=== PATIENT | female | born 1975 | race Caucasian/White ===

== ENCOUNTER 2020-05-24 16:19 | Inpatient (IN) | payer SELFPAY ==
[~2020-05-24] VITALS: Ht 167.6 cm; Wt 98.2 kg
[2020-05-24] MEDS ORDERED: LISINOPRIL10 MG PO (16:45)
[2020-05-24] MEDS ORDERED: KLONOPIN0.5 MG PO (16:45)
[2020-05-24 17:21] LABS: BASOPHILS 0.4 % (0-2); EOSINOPHILS 1.7 % (0-7); HEMATOCRIT 30.8 % (36.0-48.0); HEMOGLOBIN 9.3 g/dL (12-16); IMMATURE GRANULOCYTES 0.1 % (0-5); LYMPHOCYTE ABS# 1.71 10x3/uL (1.18-3.74); LYMPHOCYTES 21.3 % (15-50); MCH 19.2 pg (26.0-34.0); MCHC 30.2 g/dL (31.0-37.0); MCV 63.6 fL (80.0-100.0); MEAN PLATELET VOLUME 9.2 fL (7.4-10.4); MONOCYTES 10.6 % (2-11); NEUTROPHIL ABS# 5.28 10x3/uL (1.56-6.13); NEUTROPHILS 65.9 % (40-80); PLATELET COUNT 272 10x3/uL (130-400); RBC 4.84 10x6/uL (4.00-5.40); RDW 18.2 % (11.5-14.5)
[2020-05-24 17:30] LABS: CALCIUM 8.4 mg/dL (8.5-10.1); CARBON DIOXIDE 23.4 mmol/L (21.0-32.0); CREATININE - SERUM 0.9 mg/dL (0.6-1.3); POTASSIUM - SERUM 3.4 mmol/L (3.5-5.1)
[2020-05-24 17:31] LABS: APTT 28.5 SECONDS (22.8-39.4); INR 1.14 (0.85-1.17); PROTIME 13.5 SECONDS (11.6-15.0)
[2020-05-24 17:36] LABS: ALBUMIN 3.6 g/dL (3.4-5.0); BILIRUBIN - TOTAL 0.14 mg/dL (0.2-1.3); PROTEIN - SERUM 7.5 g/dL (6.4-8.2)
[2020-05-24 17:45] VITALS: BP 194/78
[2020-05-24 18:20] VITALS: BP 185/93
[2020-05-24 18:20] LABS: HCG SERUM NEGATIVE (NEGATIVE)
[2020-05-24 22:42] VITALS: BP 158/92
[2020-05-24 22:55] VITALS: BP 167/82
[2020-05-24 23:10] VITALS: BP 161/87
[2020-05-24 23:53] VITALS: Ht 167.6 cm; Wt 98.2 kg
[2020-05-25] VITALS (10 sets, daily range): BP systolic 136–181; BP diastolic 65–95
[2020-05-25] MEDS ORDERED: OXYIR5 MG PO (07:28)
[2020-05-25] MEDS ORDERED: VISTARIL50 MG PO (07:29)
[2020-05-25] MEDS ORDERED: BAYER CHEWABLE81 MG PO (07:29)
--- NOTE | 2020-05-25 07:32 | NUR ---
PT SEEN AND ASSESSED. RIGHT ANKLE WRAPPED AND ELEVATED ON PILLOW X 2. STATES PAIN IS 6/10-MED GIVEN. SCD TO LEFT LEG NOTED. INCENTIVE SPIROMETRY COMPLETED AND PULLED 2750CC. HOPING FOR DISHCARGE LATER TODAY. CALL LIGHT IN REACH
[2020-05-25 08:14] LABS: ALBUMIN 3.1 g/dL (3.4-5.0); ALKALINE PHOSPHATASE 81 U/L (30-120); ALT (SGPT) 25 U/L (10-68); BILIRUBIN - TOTAL 0.29 mg/dL (0.2-1.3); CALC OSMOLALITY 271 mosm/kg (275-300); CALCIUM 7.8 mg/dL (8.5-10.1); CARBON DIOXIDE 26.2 mmol/L (21.0-32.0); CHLORIDE - SERUM 102 mmol/L (98-107); CREATININE - SERUM 0.7 mg/dL (0.6-1.3); GLUCOSE 110 mg/dL (74-106); MAGNESIUM - SERUM 1.8 mg/dL (1.8-2.4); PHOSPHOROUS 2.8 mg/dL (2.5-4.9); POTASSIUM - SERUM 3.6 mmol/L (3.5-5.1); PROTEIN - SERUM 6.4 g/dL (6.4-8.2); SODIUM 136 mmol/L (136-145); UREA NITROGEN 11 mg/dL (7-18); eGFR NON AFRICAN AMERICAN > 90 mL/min (90-120)
[2020-05-25 08:29] LABS: BASOPHILS 0.2 % (0-2); EOSINOPHILS 0.2 % (0-7); HEMATOCRIT 27.8 % (36.0-48.0); HEMOGLOBIN 8.2 g/dL (12-16); IMMATURE GRANULOCYTES 0.1 % (0-5); LYMPHOCYTE ABS# 0.83 10x3/uL (1.18-3.74); LYMPHOCYTES 7.5 % (15-50); MCHC 29.5 g/dL (31.0-37.0); MCV 64.2 fL (80.0-100.0); MONOCYTES 11.4 % (2-11); NEUTROPHIL ABS# 8.99 10x3/uL (1.56-6.13); NEUTROPHILS 80.6 % (40-80); PLATELET COUNT 224 10x3/uL (130-400); RBC 4.33 10x6/uL (4.00-5.40); RDW 18.3 % (11.5-14.5)
[2020-05-25 08:32] LABS: MCH 18.9 pg (26.0-34.0); WBC 11.1 10x3/uL (4.8-10.8)
--- NOTE | 2020-05-25 09:44 | NUR ---
called to room. pt vomiting approx 300cc green bile. zofran given
--- NOTE | 2020-05-25 10:10 | NUR ---
pt states nausea is gone.
--- NOTE | 2020-05-25 12:23 | OP ---
PATIENT NAME: JAQUELINE HARRIS MEDICAL RECORD: [id number] :75 LOCATION:D.M3 D.1210 ADMISSION DATE:05/24/20 SURGEON: ARASH PUGA DO DATE OF OPERATION: 05/24/2020 PROCEDURE PERFORMED: Right ankle open reduction internal fixation. PREOPERATIVE DIAGNOSIS: Right ankle fracture dislocation. POSTOPERATIVE DIAGNOSIS: Right ankle fracture dislocation. INDICATIONS: Ms. Harris is a 44-year-old female who slipped getting out of her car today and twisted her ankle, came to the ER and saw. She had an ankle fracture dislocation posterolaterally. I attempted reduction in the ER with no success. She had eaten a 3:00 p.m. approximately and told her we really need to fix it tonight and it was bad to leave it dislocated. She was okay with that and aware of the risks including infection, bleeding, damage to nerve and vessels, need for further surgery, malunion, nonunion, continued pain, need for further surgery, failure of implants, blood clots and even and she signed the consent. SURGEON: Arash Puga DO DESCRIPTION OF PROCEDURE: The patient was taken to the operative suite, laid in supine position, given general anesthetic and intubated rapid sequence due to her n.p.o. status, it had only approximately 6 hours' by the time we started. The patient was given 3 grams of Ancef preoperatively. The right lower extremity was then prepped and draped in sterile fashion. Timeout was performed. Everyone was in agreeance with the correct side, site, patient and procedure. I then began by exsanguinating the right lower extremity. Tourniquet was inflated to 350 mmHg it was up for 66 minutes. I then began by making an incision over the lateral malleolus at the distal ankle and reduced it and put a plate on. Once the plate was in adequate position on AP and lateral, pinned it into place and then put distal locking screws in and two cortical screws in the shaft and two locking screws in the shaft. I then addressed the medial side, make a curvilinear incision over the medial malleolus, reduced fracture and put two K-wires in. We put one screw in posteriorly and reduced the fracture nicely the anterior one. I then exchanged due to the screw slipping out medially. I then redirected the K-wire and put another both #46 mm in length screws in the medial malleolus, reducing the fracture nicely. I then stressed the syndesmosis and it did not appear to open up much, but due to the fracture dislocation for more stability, I clamped the ankle joint together with the ankle dorsiflexed and then put a ZipTight across the syndesmosis holding the fibula and tibia together, tightened and cinched it down tight. I then released the clamp. X-rays were taken in AP, mortise and lateral. Everything was in adequate position and then irrigated the sites. Param Vela, certified surgical lab assistant closed the lateral side with 2-0 Vicryl in inverted fashion and placed a ZipLine on the incision. I then closed the medial side with 2-0 Vicryl in interrupted fashion, 4-0 Monocryl run on the skin and then where the K-wires went through and poked holes I did a 4-0 Monocryl in an inverted interrupted fashion in one hole and then the other one more posterior one was closed with a horizontal mattress. The tourniquet was then let down. She was then cleaned up and dressed with Adaptic, 4 x 4s, ABD on the heel, cast padding and 4 x 30 splint placed posteriorly and secured with an Donnie wrap. She was awakened and taken to recovery in stable condition. I did do local in the medial side. OPERATIVE REPORT [id number] JAQUELINE HARRIS BLOOD LOSS: Minimal. COMPLICATIONS: None. TRANSINT:[id number] Voice Confirmation ID: [id number] DOCUMENT ID: [id number] ARASH PUGA DO at 1223 CC: [id number] DICTATION DATE: 05/24/202210 STATISTICS PROFESSOR: 05/25/20 020 ADM IN [facility] [address] [place] [address]
--- NOTE | 2020-05-25 19:12 | NUR ---
PATIENT RESTING IN BED WITH NO S/S OF DISTRESS. VSS. PATIENT DENIES NEEDS AT THIS TIME. BED IN LOWEST POSITION, CALL LIGHT WITHIN REACH, AND BED ALARM ON. ENCOURAGED PATIENT TO CALL WITH NEEDS.
--- NOTE | 2020-05-25 20:02 | NUR ---
ADMINISTERED MEDS PER ORDERS. PATIENT SHAWN WELL. ENCOURAGED TO CALL WITH NEEDS.
[2020-05-26 05:19] VITALS: BP 133/69
[2020-05-26] MEDS ORDERED: ZOFRAN ODT4 MG/UDTAB PO (07:01)
[2020-05-26 07:36] VITALS: BP 133/60
--- NOTE | 2020-05-26 07:47 | NUR ---
AWAKE AND ALERT. ORIENTED X3. LUNGS ARE CLEAR BILATERALLY, NO COUGH NOTED. SKIN IS INTACT WITHOUT REDNESS EXCEPT TO RIGHT ANKLE WHICH HAS A DRY INTACT CAST/DRESSING IN PLACE. SL TO LEFT AC AREA IS PATENT WITHOUT REDNESS AT INSERTION SITE. DENIES NEEDS. NEURO CHECKS WNL TO RIGHT FOOT.
[2020-05-26 08:02] LABS: CALC OSMOLALITY 272 mosm/kg (275-300); CALCIUM 7.9 mg/dL (8.5-10.1); CARBON DIOXIDE 27.4 mmol/L (21.0-32.0); CHLORIDE - SERUM 103 mmol/L (98-107); CREATININE - SERUM 0.5 mg/dL (0.6-1.3); GLUCOSE 97 mg/dL (74-106); MAGNESIUM - SERUM 2.2 mg/dL (1.8-2.4); PHOSPHOROUS 2.7 mg/dL (2.5-4.9); POTASSIUM - SERUM 3.4 mmol/L (3.5-5.1); SODIUM 137 mmol/L (136-145); UREA NITROGEN 11 mg/dL (7-18); eGFR NON AFRICAN AMERICAN > 90 mL/min (90-120)
[2020-05-26 08:04] LABS: BASOPHILS 0.3 % (0-2); EOSINOPHILS 2.3 % (0-7); HEMATOCRIT 26.6 % (36.0-48.0); HEMOGLOBIN 7.8 g/dL (12-16); IMMATURE GRANULOCYTES 0.3 % (0-5); LYMPHOCYTE ABS# 0.99 10x3/uL (1.18-3.74); LYMPHOCYTES 15.3 % (15-50); MCHC 29.3 g/dL (31.0-37.0); MCV 64.6 fL (80.0-100.0); MEAN PLATELET VOLUME 9.2 fL (7.4-10.4); MONOCYTES 16.7 % (2-11); NEUTROPHIL ABS# 4.21 10x3/uL (1.56-6.13); NEUTROPHILS 65.1 % (40-80); PLATELET COUNT 211 10x3/uL (130-400); RBC 4.12 10x6/uL (4.00-5.40); RDW 18.6 % (11.5-14.5)
[2020-05-26 08:15] LABS: MCH 18.9 pg (26.0-34.0); WBC 6.5 10x3/uL (4.8-10.8)
--- NOTE | 2020-05-26 10:19 | NUR ---
REFUSED BREAKFAST TRAY. ALTERNATIVE OF A BANANA GIVEN TO PATIENT. TOOK AM MEDS WITHOUT DIFFICULTY.
[2020-05-26 11:20] VITALS: BP 139/71
--- NOTE | 2020-05-26 13:45 | NUR ---
TRANSFUSION INITIATED. VSS.
[2020-05-26] MEDS ORDERED: MIRALAX17 GM PO (14:11)
--- NOTE | 2020-05-26 16:00 | NUR ---
TRANSFUSION CONTINUES WITHOUT DIFFICULTY. VSS. DENIES NEEDS.
--- NOTE | 2020-05-26 16:20 | MORECARE ---
CASE MANAGEMENT DISCHARGE SUMMARY PATIENT: JAQUELINE HARRIS UNIT: [id number] ADM DATE: 05/24/20 AGE: 44 : 75 SEX: F ROOM/BED: D.1210 AUTHOR: RAMESHDOC PHYSICIAN: REFERRING PHYSICIAN: JAEL MELISSA MD DATE OF SERVICE: 05/26/20 Discharge Plan Patient Name: JAQUELINE HARRIS Facility: [facility]:[place] : 1975 Planned Disposition: Home Anticipated Discharge Date: 05/26/20 Discharge Date: Expected LOS: 2 Initial Reviewer: [email or web address] Initial Review Date: 05/24/2020 Generated: 05/26/20 5:19 pm Comments DCP- Discharge Planning Updated by [email or web address]: Kun Trinidad on 05/26/20 3:[address] CM met with patient to complete DC plan and needs. Patient lives at home with family. At discharge patient plans to return home and feels this is a safe discharge. CM discussed availability of home health, rehab services, and medical equipment. Patient declined HHS, SNF, IPR, and DME. Patient stated that her will bring a walker with him at DC. Patient voiced no other needs at this time and is satisfied with DC plan. Transportation provider at discharge will be with her , Jai Lauren ([phone]). CM will continue to follow and will assist as needed with dc plans/needs. DCPIA - Discharge Planning Initial Assessment Updated by [email or web address]: Kun Trinidad on 05/26/20 4:17 pm * Is the patient Alert and Oriented? Yes * How many steps to enter\exit or inside your home? ramp * PCP Dr. Kaufman * Pharmacy [facility] [place] [address] * Preadmission Environment Home with Family * ADLs Independent * Equipment None * Other Equipment n/a * List name and contact numbers for known caregivers / representatives who currently or will assist patient after discharge: Jai Lauren - ([phone]) * Verbal permission to speak to the caregivers and representatives has been obtained from the patient. Yes * Community resources currently utilized None * Please name any agencies selected above. n/a * Additional services required to return to the preadmission environment? No * Can the patient safely return to the preadmission environment? Yes * Has this patient been hospitalized within the prior 30 days at any hospital? No Patient Name: JAQUELINE HARRIS Page [id number] at 1620 All edits/amendments must be made on the electronic document DICTATION DATE: 05/26/201619 DIRECTIONAL DRILL OPERATOR: BRANDON 05/26/201619 RPT#: [id number] DC DATE: STATUS: ADM IN [facility] [address] [place] [address] END OF REPORT
--- NOTE | 2020-05-26 18:45 | NUR ---
TRANSFUSION COMPLETED. VSS. UP TO BR WITH MIN ASSIST OF ONE. VOIDED WITHOUT DIFFICULTY. HERE. WILL D/C HOME SHORTLY.
--- NOTE | 2020-05-26 18:55 | NUR ---
PATIENT RESTING IN BED WITH NO S/S OF DISTRESS AND GUEST AT BEDSIDE. PATIENT DENIES NEEDS AT THIS TIME. BED IN LOWEST POSITION AND CALL LIGHT WITHIN REACH. ENCOURAGED PATIENT TO CALL WITH NEEDS.
[2020-05-26 19:25] VITALS: BP 161/79
--- NOTE | 2020-05-26 19:25 | NUR ---
REMOVED PIV TO LEFT FA. TIP INTACT.
--- NOTE | 2020-05-26 19:30 | NUR ---
DISCHARGED PATIENT VIA WHEELCHAIR. ASSISTED PATIENT OUT THROUGH ER AND INTO VEHICLE WITH .
--- NOTE | 2020-05-27 08:47 | MORECARE ---
CASE MANAGEMENT DISCHARGE SUMMARY PATIENT: JAQUELINE HARRIS UNIT: [id number] ADM DATE: 05/24/20 AGE: 44 : 75 SEX: F ROOM/BED: D.1210 AUTHOR: ALICE CHANDLER PHYSICIAN: REFERRING PHYSICIAN: JAEL MELISSA MD DATE OF SERVICE: 05/27/20 Discharge Plan Patient Name: JAQUELINE HARRIS Facility: [facility]:[place] : 1975 Planned Disposition: Home Anticipated Discharge Date: 05/26/20 Discharge Date: 05/26/2020 Expected LOS: 2 Initial Reviewer: KELLY Initial Review Date: 05/24/2020 Generated: 05/27/20 9:46 am Comments DCP- Discharge Planning Updated by [email or web address]: Kun Trinidad on 05/26/20 3:[address] CM met with patient to complete DC plan and needs. Patient lives at home with family. At discharge patient plans to return home and feels this is a safe discharge. CM discussed availability of home health, rehab services, and medical equipment. Patient declined HHS, SNF, IPR, and DME. Patient stated that her will bring a walker with him at DC. Patient voiced no other needs at this time and is satisfied with DC plan. Transportation provider at discharge will be with her , Jai Lauren ([phone]). CM will continue to follow and will assist as needed with dc plans/needs. DCPIA - Discharge Planning Initial Assessment Updated by [email or web address]: Kun Trinidad on 05/26/20 4:17 pm * Is the patient Alert and Oriented? Yes * How many steps to enter\exit or inside your home? ramp * PCP Dr. Kaufman * Pharmacy [facility] [place] [address] * Preadmission Environment Home with Family * ADLs Independent * Equipment None * Other Equipment n/a * List name and contact numbers for known caregivers / representatives who currently or will assist patient after discharge: Jai Lauren - ([phone]) * Verbal permission to speak to the caregivers and representatives has been obtained from the patient. Yes * Community resources currently utilized None * Please name any agencies selected above. n/a * Additional services required to return to the preadmission environment? No * Can the patient safely return to the preadmission environment? Yes * Has this patient been hospitalized within the prior 30 days at any hospital? No Last DP export: 05/26/20 3:20 p Patient Name: JAQUELINE HARRIS Page [phone] at 0847 All edits/amendments must be made on the electronic document DICTATION DATE: 05/27/20845 FRINGE WEAVER: BRANDON 05/27/20845 RPT#: [id number] DC DATE:05/26/20 STATUS: DIS IN [facility] [address] [place] [address] END OF REPORT
== END 2020-05-26 19:30 | disposition home or self-care (01) | DRG 493 ==
LOC: D.ER 16:19 → D.EDHOLD 18:23 → D.M3 19:57
PROVIDERS: Family Medicine; Orthopaedic Surgery; ADMIT Emergency Medicine; ATTEND Emergency Medicine
PROC: 0QSG04Z Reposition Right Tibia with Internal Fixation Device, Open Approach (ICD-10-PCS; 2020-05-24)
PROC: 0QSJ04Z Reposition Right Fibula with Internal Fixation Device, Open Approach (ICD-10-PCS; principal; 2020-05-24 19:30)
DX: S82.851A Displaced trimalleolar fracture of right lower leg, initial encounter for closed fracture (principal); D62 Acute posthemorrhagic anemia; W00.0XXA Fall on same level due to ice and snow, initial encounter; Y93.9 Activity, unspecified; Y92.9 Unspecified place or not applicable; I10 Essential (primary) hypertension; K21.9 Gastro-esophageal reflux disease without esophagitis; E78.5 Hyperlipidemia, unspecified; F41.9 Anxiety disorder, unspecified